=== PATIENT | female | born 1940 | race Caucasian/White ===

== ENCOUNTER → 2023-05-06 | Outpatient (REF) | payer MEDICARE, BC ==
[~2023-05-06] MED LIST: FLUT12AE2; MECL-136 PO; NOXI1TAB PO; PYRI25TA2 PO; VITA100T59 PO; XARE10TA PO
== END ==
LOC: M SFHCWAGY 13:59
PROVIDERS: ATTEND Obstetrics & Gynecology
DX: Z12.4 Encounter for screening for malignant neoplasm of cervix (principal); R87.615 Unsatisfactory cytologic smear of cervix
CPT/HCPCS: 87624; G0123